=== PATIENT | male | born 1970 | race African-American/Black ===

== ENCOUNTER 2020-04-14 12:00 | Emergency (ER) | payer OTHER, MEDICAID ==
[~2020-04-14] VITALS: Ht 170.2 cm; Wt 105.2 kg
[2020-04-14 12:29] VITALS: BP_SYST 187
--- NOTE | 2020-04-14 14:53 | NUR ---
Called name in waiting room no response.
== END 2020-04-14 14:53 | disposition left against medical advice (07) ==
LOC: SED 12:00
DX: K08.89 Other specified disorders of teeth and supporting structures (principal); Z53.21 Procedure and treatment not carried out due to patient leaving prior to being seen by health care provider

== ENCOUNTER 2022-10-10 09:42 | Inpatient (IN) | payer OTHER, MEDICAID ==
[~2022-10-10] VITALS: Ht 162.6 cm; Wt 115.2 kg
[2022-10-10 09:44] VITALS: BP_SYST 213; PULSE 87; RESP 18; TEMP 98.3; O2SAT 98
[2022-10-10] MEDS ORDERED: ASPIRIN 325 MG TABLET PO ONE (09:45)
[2022-10-10] MEDS ORDERED: MORPHINE 4 MG INJ. 4 MG/ML VIAL IVP ONE (09:46)
[2022-10-10] MEDS ORDERED: NITROGLYCERIN 1 INCH (GM) OINT. TP ONE (09:46)
[2022-10-10] MEDS ORDERED: LABETALOL HCL 20 MG/4 ML CARTRIDGE IVP ONE ×2 (10:00→11:15)
[2022-10-10 10:05] LABS: BASOPHILS % (AUTO) 0.8 % (0.0-2.0); EOSINOPHILS # (AUTO) 0.5 K/uL (0.0-0.4); EOSINOPHILS % (AUTO) 7.7 % (0.0-4.0); HEMATOCRIT 45.9 % (36-54); HEMOGLOBIN 15.5 g/dL (14.0-18.0); LYMPHOCYTES # (AUTO) 2.2 K/uL (1.0-5.5); LYMPHOCYTES % (AUTO) 36.1 % (20.5-51.5); MEAN CORPUSCULAR HEMOGLOBIN 30 pg (27-31); MEAN CORPUSCULAR HGB CONC 34 % (32-36); MEAN CORPUSCULAR VOLUME 87 fL (79.0-98.0); NEUTROPHILS # (AUTO) 2.4 K/uL (1.8-7.7); NEUTROPHILS % (AUTO) 39.4 % (40.0-70.0); PLATELET COUNT (AUTO) 273 K/uL (130-430); RED BLOOD CELL COUNT(AUTO) 5.25 MIL/uL (4.2-6.2); RED CELL DISTRIBUTION WIDTH 13.6 % (9.0-15.0)
[2022-10-10 10:14] LABS: ANION GAP 10 (5-15); CALCIUM 8.7 mg/dL (8.4-11.0); CHLORIDE 99 mmol/L (98-107); CREATININE 0.99 mg/dL (0.55-1.30); GFR AFRICAN AMERICAN 101 mL/min (>90); GLUCOSE 108 mg/dL (70-99); UREA NITROGEN, BLOOD 14 mg/dL (8-21)
[2022-10-10 10:17] LABS: PROTHROMBIN TIME 10.4 SECS (9.5-12.5)
[2022-10-10] MEDS ORDERED: IRBE150T48 PO (10:25)
[2022-10-10] MEDS ORDERED: SIMV-343 PO (10:25)
[2022-10-10 10:33] LABS: ALANINE AMINOTRANSFERASE 34 U/L (12-78); ALBUMIN 4.2 g/dL (3.4-4.8); ASPARTATE AMINOTRANSFERASE 21 U/L (10-37); TOTAL BILIRUBIN 0.4 mg/dL (0.0-1.0)
[2022-10-10] MEDS ORDERED: ENOXAPARIN SODIUM 100 MG/ML SYRINGE SUBCUT ONE (10:45)
[2022-10-10 13:31] VITALS: BP_SYST 154; PULSE 68; RESP 6; O2SAT 99
== END 2022-10-10 14:03 | disposition left against medical advice (07) | DRG 313 ==
LOC: SED 09:42 → STU 11:05
PROVIDERS: ADMIT Internal Medicine; ATTEND Internal Medicine
DX: R07.9 Chest pain, unspecified (principal); I10 Essential (primary) hypertension; E78.5 Hyperlipidemia, unspecified; I25.10 Atherosclerotic heart disease of native coronary artery without angina pectoris
CPT/HCPCS: 36415; 71045; 80053; 83880; 84484; 85025; 85379; 85610-TC; 85730-TC; 93005; 96374; 99285; G0378; J1650; J2270